=== PATIENT | female | born 1990 | race Caucasian/White ===

== ENCOUNTER 2023-10-08 16:57 | Outpatient (CLI) | payer OTHER, SELFPAY ==
[2023-10-08 17:31] VITALS: BP 101/58; PULSE 87
[2023-10-08 17:40] VITALS: BP 101/58; PULSE 95
== END 2023-10-08 17:42 | disposition home or self-care (01) ==
LOC: ANHOBOP 17:01 → ANHOBPP 17:03
PROVIDERS: Visit Provider Obstetrics & Gynecology
DX: O41.8X90 Other specified disorders of amniotic fluid and membranes, unspecified trimester, not applicable or unspecified (principal); Z3A.00 Weeks of gestation of pregnancy not specified
CPT/HCPCS: 59025; 84112; 99199

== ENCOUNTER 2023-12-08 23:53 | Inpatient (IN) | payer OTHER, MEDICAID, SELFPAY ==
[2023-12-09] VITALS (157 sets, daily range): BP systolic 76–128; BP diastolic 43–83; PULSE 26–152; RESP 16–17; TEMP 36.3–36.8; O2SAT 83–100; BMI 35.2
[2023-12-09 02:04] LABS: Basophils Absolute Auto 0.1 K/mm3 (0.0-0.1); Basophils Percent Auto 0.7 % (0.2-1.2); Eosinophils Absolute Auto 0.7 K/mm3 (0-0.3); Eosinophils Percent Auto 3.5 % (0-4.4); Hematocrit 31.1 % (37.0-47.0); Hemoglobin 10.1 g/dL (12.0-15.0); Immature Granulocyte Absolute 0.62 K/mm3 (0.00-0.031); Immature Granulocyte Percent A 3.3 % (0-0.5); Lymphocytes Absolute Auto 3.62 K/mm3 (0.9-3.2); Mean Corpuscular HGB Conc 32.5 g/dl (32-36); Mean Corpuscular Hemoglobin 29.6 pg (26-34); Mean Corpuscular Volume 91.2 fl (80-100); Mean Platelet Volume 10.3 fl (7.4-10.4); Monocytes Absolute Auto 1.3 K/mm3 (0.1-0.6); Monocytes Percent Auto 6.8 % (2.6-8.5); Neutrophils Absolute Auto 12.7 K/mm3 (1.3-6.7); Neutrophils Percent Auto 66.7 % (45.5-73.1); Platelet Count Result 358 k/mm3 (150-375); Red Blood Count 3.41 M/mm3 (4.2-5.4); Red Cell Distribution Width 13.7 % (11.5-14.5); White Blood Count 19.1 K/mm3 (4.5-10.0)
[2023-12-09] MEDS: LACTATED RINGERS 1,000 ML 125 ML IV CONT ×3 (02:06→10:24)
--- NOTE | 2023-12-09 02:16 | ADMGEN ---
This patient, Tatianna Cody, was admitted to Labor/Delivery/Recovery 107-00. Patient/family oriented to hospital policies and general routines including ID bracelet, bed and alarms, visiting hours, pain management, procedures, bathroom and other care routines, personal items, smoking policy, room service/diet, and visiting hours. Information on how to activate the Rapid Response Team has been discussed. Patient/Family are encouraged to report perceived risks to care and to ask questions if they do not understand what they are told or what they should do.
[2023-12-09] MEDS: ONDANSETRON INJ 4 MG/2 ML VIAL IV PUSH (02:29)
[2023-12-09 03:07] LABS: HIV 1/2 Ab P24 Ag Result Negative (Negative)
--- NOTE | 2023-12-09 03:39 | PC.NURSE ---
At 0224, asked patient if she had access to patient portal to view her GBS testing result. Viewed that report was negative. Will inform day shift nurse to obtain official copy of report from office in the AM.
[2023-12-09] MEDS: OXYTOCIN 30 UNITS/NS 500 ML 30 UNITS/500 ML BAG IV CONT (04:13)
--- NOTE | 2023-12-09 08:15 | WPDANESEPP ---
Anes - Eval Pre Procedure Procedure: Labor Epidural Date/Time: 12/09/23 08:15 Preop Diagnosis: Labor pain Pre Op Diagnosis: IOL Patient Data Age: 33 Gender: F Height: 1.63 m Weight: 93 kg Last Vital Signs Pulse 94 12/09/23 08:13 BP 106/55 L 12/09/23 08:13 Pulse Ox 98 12/09/23 08:13 O2 Del Method Room Air 12/09/23 02:14 Allergies Allergy/AdvReac Type Severity Reaction Status Date / Time cabbage Allergy Unknown facial Verified 12/09/23 02:11 swelling Home Medications Medication Instructions Recorded Confirmed Type cyclobenzaprine 5 mg tablet 5 mg PO DAILY PRN muscle pain 11/19/23 12/09/23 History ferrous sulfate 325 mg (65 mg 325 mg PO DAILY 11/19/23 12/09/23 History iron) tablet vits no.126-ferrous fum 1 tablet PO DAILY 11/19/23 12/09/23 History 28 mg iron-folic acid 800 mcg tablet (Classic ) Laboratory Tests 12/09/23 01:29 WBC 19.1 H K/mm3 (4.5-10.0) RBC 3.41 L M/mm3 (4.2-5.4) Hgb 10.1 L g/dL (12.0-15.0) Hct 31.1 L % (37.0-47.0) MCV 91.2 fl (80-100) MCH 29.6 pg (26-34) MCHC 32.5 g/dl (32-36) RDW 13.7 % (11.5-14.5) Plt Count 358 k/mm3 (150-375) MPV 10.3 fl (7.4-10.4) Immature Gran % (Auto) 3.3 H % (0-0.5) Neut % (Auto) 66.7 % (45.5-73.1) Lymph % (Auto) 19.0 % (18.3-44.2) [place] % (Auto) 6.8 % (2.6-8.5) Eos % (Auto) 3.5 % (0-4.4) Baso % (Auto) 0.7 % (0.2-1.2) Lymph # (Auto) 3.62 H K/mm3 (0.9-3.2) [place] # (Auto) 1.3 H K/mm3 (0.1-0.6) Eos # (Auto) 0.7 H K/mm3 (0-0.3) Baso # (Auto) 0.1 K/mm3 (0.0-0.1) Abs Immat Gran (auto) 0.62 H K/mm3 (0.00-0.031) Absolute Neuts (auto) 12.7 H K/mm3 (1.3-6.7) Absolute Nucleated RBC 0.0 K/mm3 (0.0-0.012) Nucleated RBC % 0.0 % (0.0-0.2) RPR Pending HIV 1&2 Ab/P24 Ag 4thGn Negative (Negative) Blood Type O Positive Antibody Screen Negative : gestational age (KEELEY 12/15/23) Patient hx anesthesia problems: none Family hx anesthesia problems: none Results Review: All pre-operative results and documents have been reviewed as part of the pre-operative evaluation. [facility] Family History Family History Grandparent Congestive heart failure Cancer Social History Social History Smoking packs per day: 1 Smoking cigarettes per day: 20.0 Years smoked: 7 Smoking pack-years: 7.00 Smoking status: Former smoker Tobacco type: cigarettes Substance use: never Do You Feel Safe in your Home?: Yes Lack of Transportation: No Lack of Food: Often True Current Housing: I Have Housing Concerned About Future Housing: No Difficulty Paying Gas/Electric Bills: No Difficulty Paying for Meds: No Currently Unemployed: No Education: High School Diploma/GED Difficulty w/ Childcare or Family Care: No Spiritual care concerns: No Exam Day of Procedure 12/09/23 08:15 Neurological: alert and oriented
--- NOTE | 2023-12-09 12:40 | PM.IMHP ---
H&P: HPI History of Present Illness Date/Time: 12/09/23 0830 Chief Complaint: EIL Narrative: Patient is a 33 year old who presents for EIL. Her has been complicated by anemia, last Hgb 9.9 in office. Reports intermittent contractions, no LOF or VB. Good movement. Review of Systems Review of Systems: All systems reviewed & are unremarkable except as noted in HPI and below PMFSH Family History Family History Grandparent Congestive heart failure Cancer Social History Social History Smoking packs per day: 1 Smoking cigarettes per day: 20.0 Years smoked: 7 Smoking pack-years: 7.00 Smoking status: Former smoker Tobacco type: cigarettes Substance use: never Do You Feel Safe in your Home?: Yes Lack of Transportation: No Lack of Food: Often True Current Housing: I Have Housing Concerned About Future Housing: No Difficulty Paying Gas/Electric Bills: No Difficulty Paying for Meds: No Currently Unemployed: No Education: High School Diploma/GED Difficulty w/ Childcare or Family Care: No Spiritual care concerns: No Meds Home Medications and Allergies Home Medications Medication Instructions Recorded Confirmed Type cyclobenzaprine 5 mg tablet 5 mg PO DAILY PRN muscle pain 11/19/23 12/09/23 History ferrous sulfate 325 mg (65 mg 325 mg PO DAILY 11/19/23 12/09/23 History iron) tablet vits no.126-ferrous fum 1 tablet PO DAILY 11/19/23 12/09/23 History 28 mg iron-folic acid 800 mcg tablet (Classic ) Allergies Allergy/AdvReac Type Severity Reaction Status Date / Time cabbage Allergy Unknown facial Verified 12/09/23 02:11 swelling Vital Signs Vital Signs - 24 hr 12/09/23 00:43 12/09/23 00:45 12/09/23 01:00 Temperature Pulse Rate 96 98 96 Respiratory Rate Blood Pressure 102/80 104/67 111/63 Pulse Oximetry Oxygen Delivery 12/09/23 02:00 12/09/23 03:11 12/09/23 04:00 Temperature Pulse Rate 90 92 86 Respiratory Rate Blood Pressure 106/66 105/55 L 109/66 Pulse Oximetry Oxygen Delivery 12/09/23 05:00 12/09/23 06:00 12/09/23 06:30 Temperature Pulse Rate 88 91 90 Respiratory Rate Blood Pressure 103/67 108/73 113/74 Pulse Oximetry Oxygen Delivery 12/09/23 06:45 12/09/23 06:50 12/09/23 06:55 Temperature Pulse Rate 85 Respiratory Rate Blood Pressure 101/60 Pulse Oximetry 100 100 Oxygen Delivery 12/09/23 07:00 12/09/23 07:05 12/09/23 07:10 Temperature Pulse Rate 90 Respiratory Rate Blood Pressure 117/83 Pulse Oximetry 100 100 100 Oxygen Delivery 12/09/23 07:15 12/09/23 07:20 12/09/23 07:25 Temperature Pulse Rate 87 Respiratory Rate Blood Pressure 106/71 Pulse Oximetry 99 99 96 Oxygen Delivery 12/09/23 07:30 12/09/23 07:33 12/09/23 07:35 Temperature Pulse Rate 90 97 Respiratory Rate Blood Pressure 103/61 101/67 Pulse Oximetry 98 99 Oxygen Delivery 12/09/23 07:40 12/09/23 07:40 12/09/23 07:45 Temperature Pulse Rate Respiratory Rate Blood Pressure Pulse Oximetry 98 97 99 Oxygen Delivery 12/09/23 07:46 12/09/23 07:50 12/09/23 07:52 Temperature Pulse Rate Respiratory Rate Blood Pressure Pulse Oximetry 97 98 83 L Oxygen Delivery 12/09/23 07:53 12/09/23 07:54 12/09/23 07:55 Temperature Pulse Rate Respiratory Rate Blood Pressure Pulse Oximetry 92 98 99 Oxygen Delivery 12/09/23 08:00 12/09/23 08:04 12/09/23 08:06 Temperature Pulse Rate 96 98 Respiratory Rate Blood Pressure 114/65 109/67 Pulse Oximetry 100 Oxygen Delivery 12/09/23 08:08 12/09/23 08:10 12/09/23 08:11 Temperature Pulse Rate 96 85 85 Respiratory Rate Blood Pressure 86/63 L 99/59 L 104/51 L Pulse Oximetry 93 Oxygen Deliver
[2023-12-09] MEDS: OXYTOCIN 30 UNITS/NS 500 ML 30 UNITS/500 ML BAG 125 UNITS IV CONT (15:32)
[2023-12-09 15:51] LABS: Rapid Plasma Reagin Non-Reactive (NonReactive)
[2023-12-09] MEDS: ACETAMINOPHEN 325 MG TABLET 650 MG PO ×2 (16:46→22:36)
[2023-12-09] MEDS: BENZOCAINE 20% AER SPR (*SP) 56 GM CAN 1 SPRAY TOPICAL (16:46)
[2023-12-09] MEDS: WITCH HAZEL 40 PADS 1 PAD TOPICAL (16:46)
[2023-12-09] MEDS: IBUPROFEN 600 MG TABLET PO ×2 (16:47→22:36)
--- NOTE | 2023-12-09 17:35 | PC.NURSE ---
Patient transferred to post room #288 per wheelchair from labor and delivery. Support person present. Oriented to unit, room, information board, rooming in, admission packet and security measures. Patient verbalizes understanding.
--- NOTE | 2023-12-09 21:06 | P.PCNOB_ITS ---
OB - Vaginal Delivery Note Procedure Delivery date: 12/09/23 Events: Elective Induction of Labor Induction method: Per Pitocin Protocol Delivery augmentation: Rupture of Membranes Delivery monitor: External FHT and External Uterine Route of delivery: Episiotomy description: None Laceration Description: None Specimen: No Quantitative Blood Loss (ml): 150 Anesthesia type: Epidural Disposition: Floor Complications: No immediate complications Narrative: See H&P and notes for details on patient's admission and labor. She progressed to complete cervical dilation and at the appropriate time began pushing. With adequate expulsive efforts by the mother, the baby's head was delivered without difficulty. Nuchal cord was present x1 and delivered through. The baby's right shoulder was anterior and delivered under the pubic symphysis without difficulty. The posterior shoulder and the rest of the baby delivered without difficulty. The umbilical cord was doubly clamped and cut after 60 seconds of delayed cord clamping. Care of the infant was then assumed by the nursing staff. After delivery of the placenta and inspection of the perineum, increased uterine bleeding was noted. This resolved with bimanual massage. Cytotec 800mcg was placed rectally. Mother and are at this time in stable condition and doing well. [place] Baby Date of : 12/09/23 Weeks of gestation at delivery: 39 Infant gender: Female presentation: vertex position: Left Occiput Anterior Placenta delivery description: Expressed Cord Vessel Description: 3 Vessels score one minute: 7 score five minutes: 9
[2023-12-10 01:15] VITALS: BP 105/65; PULSE 71; RESP 16; TEMP 36.6; O2SAT 98
[2023-12-10 04:48] LABS: Hemoglobin 9.4 g/dL (12.0-15.0)
[2023-12-10] MEDS: IBUPROFEN 600 MG TABLET PO ×2 (04:48→13:55)
--- NOTE | 2023-12-10 07:33 | WPDANLDPN2 ---
Anes-Prog Note L&D Date/Time: 12/10/23 07:33 Comfortable throughout: labor (patient reports having had sensation in her lower abdomen during labor and delivery) Neuraxial method: epidural Epidural/Spinal procedure site: clean & non-tender Neuro status: Neuro function grossly intact. Cardiovascular status: normal Respiratory status: normal Airway patency: baseline Mental status: baseline Post-Op hydration status: normal Vital Signs: Last Vital Signs Temp 36.6 C 12/10/23 01:15 Pulse 71 12/10/23 01:15 Resp 16 12/10/23 01:15 BP 105/65 12/10/23 01:15 Pulse Ox 98 12/10/23 01:15 O2 Del Method Room Air 12/09/23 19:30 Pain score (VAS): 3/10 I/O: Intake & Output 12/09/23 12/09/23 12/10/23 15:59 23:59 07:59 Intake Total 2000 Output Total 150 Balance 2000 -150 Post-procedural complaints: none Patient feedback: Patient satisfied with anesthetic care.
[2023-12-10 07:50] VITALS: BP 106/73; PULSE 73; RESP 16; TEMP 37; O2SAT 99
[2023-12-10] MEDS: POLYSACCHARIDE IRON COMPLEX 150 MG CAPSULE PO (07:57)
[2023-12-10] MEDS: DOCUSATE SODIUM 100 MG CAPSULE PO (07:57)
[2023-12-10] MEDS: ACETAMINOPHEN 325 MG TABLET 650 MG PO (07:57)
--- NOTE | 2023-12-10 09:17 | PM.OBPNVD ---
OB - PN: Subj Subjective Date/time seen: 12/10/23 09:17 Interval history: PPD#1 Doing well, pain well controlled Emptying bladder without issue Formula feeding Bleeding wnl Ready for discharge home today OB - PN: Obj Data Labs 12/10/23 03:08 Labs: Laboratory Results - last 24 hr 12/09/23 12/10/23 01:29 03:08 Hgb 9.4 L Hct 30.0 L RPR Non-reactive OB - PN A/P Plan day: 1 Plan: routine care and discharge home Time Spent With Patient Time: Total time spent is greater than 50% in coordination of care (as documented) at patient's floor/unit and/or counseling patient: Review of Systems Review of Systems: All systems reviewed & are unremarkable except as noted in HPI and below Exam Const: General: comfortable and no acute distress HENMT: Mouth: Yes moist mucous membranes Eyes: General: appearance normal, both eyes and all related structures Resp: Effort & Inspection: normal respiratory effort Cardio: Rate: regular rate Skin: General skin exam: normal color Psych: Mental Status: mental status grossly normal
--- NOTE | 2023-12-10 11:01 | PC.NURSE ---
1040 RN spoke with Rachel Richard with DCFS #[phone]. DCFS received an outside anonymous call concerned about the environment that baby will be living in and how it is not a suitable home, the patient also has had prior DCFS involvement. Medical providers and staff unaware until called. [address] Rashid notified of above information. [address] Dillon to let her know the above information. RN to put in Care Coordination consult and will notify Care Coordination.
[2023-12-10 12:35] VITALS: BP 98/60; PULSE 80; RESP 16; TEMP 36.8; O2SAT 99
--- NOTE | 2023-12-10 16:09 | PCCCNOTE ---
Recvd consult due to DCFS called RN, they will be seeing pt. today. Met with pt. and FOB Carlito who report this is their third daughter, and their other two daughters are 8 and 6 years old, and at the time of their births, they were placed into custody of pt's mother Lin. Lin now has guardianship of these two children, and pt. reports in process of gaining guardianship back and going through the courts. Pt. reports births were in 2016 and 2014. Pt. reports at discharge, she planned for her, baby, and Carlito to live at [address] [place] [address] in [place], two doors down from Lin and their other two daughters. Pt. reports Carlito's mom and pt's mom are very supportive as well as other family members. Pt. reports having baby supplies and already established with food stamps. Pt. reports looking into WIC. resources provided to pt. Pt. reports no current DCFS, just the previous cases in 2016 and 2014. Pt. denies any drug use. NIHARIKA Treadwell reports DCFS worker Rachel Richard [phone] called RN station and reports an anonymous phone report was made with DCFS that reported home not suitable for living, and prior DCFS involvement. CC spoke with Rachel who reports coming to hospital this afternoon to make contact with pt., and states likely will require a home visit. NIHARIKA Treadwell reports Rachel is at bedside now. DCFS outcome pending.
--- NOTE | 2023-12-10 18:45 | PC.NURSE ---
1413 Rachel Richard with [facility] here to see patient and her . 1708 RN spoke with ANGELLA Guillermo, she has decided on an Out of Home, Safety Plan where mother, father and baby will go and stay with their family friend, Sachin who is also here and has spoken with Rachel from [facility]. Rachel Richard is going to go to [facility] in [place], [place] and do a home inspection and will call with the OK and approval to discharge mother and baby home today to [facility]. 1725 RN spoke with Danielle in Dr. Dillon's office and she will let her know the safety plan for the patient. [address] Rashid and also let him know the safety plan for the patient and her baby. Also advised Dr. Rashid that the patient's other 2 children were living with the patient's mother and that the grandmother has guardianship of them both. 1730 RN tried to call Rissa in Care Coordination, she is gone for the day. RN to send email with update. 1800 ANGELLA Guillermo, called and gave the OK approval for the patient and baby to be discharged this evening and home to [facility], she had done a home visit/inspection. 1813 Patient called RN to room and wanted to see if Rachel Richard would be ok if they stayed another night and was discharged home tomorrow to her mother or aunt's home instead of [facility]. RN called Rachel and she said that would be ok but that Rachel would need to come back to the hospital and reassess the plan tomorrow and do another home visit. Rachel to call the patient and discuss. 1830 Rachel Richard with [facility] spoke with RN and the patient decided to go home this evening and go and stay at [facility] until [facility] can follow up outside of the hospital. The patient and the baby can only be discharged tonight if Sachin comes to pick them up. 1835 RN checked with the patient and they have agreed to go with Sachin this evening, RN to get dicharge paperwork together. Copy of note placed in baby's chart
--- NOTE | 2023-12-10 20:00 | PC.NURSE ---
Patient discharged @ 1999, she and the baby rode with the family friend, Sachin, whose house they will be residing at until [facility] follows up per their Out of Home Safety Plan , while her followed them in a different vehicle.
[2023-12-11 12:54] VITALS: BP 111/68; PULSE 68; RESP 18; TEMP 36.8; O2SAT 100
--- NOTE | 2023-12-13 23:06 | PM.OBDSVD ---
DS: Admitting Diagnosis Discharge Date 12/10/23 Admitting Diagnosis elective induction of labor DS: Discharge Diagnosis Discharge Diagnosis (1) (spontaneous vaginal delivery): Code(s): O80 - Encounter for full-term uncomplicated delivery Status: Acute (2) Anemia affecting : Code(s): O99.019 - Anemia complicating , unspecified trimester Status: Acute OB - DS: Summary OB Procedures : None OB Procedures Intrapartum: Spontaneous Vag Delivery OB Procedures: : None Peripartum Data Laceration Description: None Episiotomy description: None Time Spent with Patient Time attestation: Total time spent providing and/or coordinating discharge services: Discharge Plan Discharge Attending physician on discharge: Christos Dillon Consulting providers: Delaney Cassidy; Harry Fernandez Discharging Clinician: Christos Dillon Patient Disposition: Home, Self-Care Activity: may shower and pelvic rest Diet: as tolerated Discharge Instructions: Per [facility], See note in chart: Mother and baby to be discharged to stay with their family friend, Sachin, whose home is where they will be residing until [facility] follows up, this is a part of their Out of Home Safety Plan . Education: Mom and Baby Guide Given to: Mother Follow-Up: Call your delivering provider's office for an appointment to be seen in: 4 Weeks Mom and baby should come to the [facility] for the follow-up appointment. Appointment Date/Time: December 11, 2023 at 12:30 pm What to expect at your follow-up visit: Physical Assessment Call [phone] if you are unable to keep your appointment time. BREAST CARE: * Wear a snug supportive bra. * Bottle Feeding: * May apply ice packs EPISIOTOMY/PERINEAL CARE: * Until bleeding stops, use your deonte bottle after urinating * Change your pad frequently throughout the day * You may take sitz baths several times a day (fill your bathtub with warm water and soak for 20 minutes.) Do NOT bathe in the water * No tub baths until seen by your physician - You may shower ACTIVITY: * Rest as much as possible. * Do not exercise or lift anything heavier than your baby (such as laundry or other children.) * Avoid stairs or driving as much as possible. * Do not put anything into the vagina. No douching, tampons, or sexual activity until seen by physician. NOTIFY PHYSICIAN IF YOU HAVE ANY QUESTIONS OR IF ANY OF THE FOLLOWING SYMPTOMS OCCUR: * If your perineum becomes red, swollen, or more painful than what you have experienced in the hospital. * If your vaginal bleeding becomes foul smelling. * If your vaginal bleeding becomes more heavy than a period or if your bleeding changes from pink to bright red. However, you may pass an occasional walnut-sized clot once or twice for the first week . * If you experience a sharp, shooting pain in you calves. * If you discover a hard, reddened area on your breast or if you experience flu-like symptoms. DIET: * Eat regular, well-balanced meals. * Drink plenty of fluids daily. If , drink to thirst. Patient Instructions: Antibiotic Form, Depression (DC), Vaginal Delivery (DC) Stand Alone Forms: General Discharge Information Follow-up/Referrals: Christos Dillon MD [Physician] - 4 Weeks Discharge Medications: New docusate sodium 100 mg Capsule 100 mg PO BID PRN (Reason: Constipation) Qty: 60 0RF ibuprofen 600 mg Tablet 600 mg PO Q6H PRN (Reason: Cramping) Qty: 30 0RF Continued Classic 28 mg iron- 800 mcg Tablet 1 tablet PO DAILY cyclobenzaprine 5 mg tablet 5 mg PO DAILY PRN (Reason: muscle pain ) Discontinued ferrous sulfate 325 mg (65 mg iron) Tablet 325 mg PO DAILY Date of admission: 12/08/23 23:53 Primary Care Provider: Aurora,Jatin Bhakta Admitting Provider: Christos Dillon Attending joseluis
== END 2023-12-10 20:00 | disposition home or self-care (01) | DRG 807 ==
LOC: ANHLDR 12-09 03:57 → ANHOB2 12-09 17:54
PROVIDERS: Admitting Provider Obstetrics & Gynecology; PCP Internal Medicine; Visit Provider Obstetrics & Gynecology
DX: O99.02 Anemia complicating childbirth (principal); Z37.0 Single live birth; Z3A.39 39 weeks gestation of pregnancy; D64.9 Anemia, unspecified; O69.81X0 Labor and delivery complicated by cord around neck, without compression, not applicable or unspecified
CPT/HCPCS: 36415; 84112; 85014; 85018; 85025; 86592; 86703; 86850; 86900; 86901; A9270; G0432; J2405; J2590; J2795; J7120